=== PATIENT | female | born 1960 | race Caucasian/White ===

== ENCOUNTER 2022-11-17 06:14 | Day surgery (SDC) | payer MEDICARE, OTHER ==
[~2022-11-17 06:14] MED LIST: Dextrose 5%-0.45% NaCl 1,000 ML IV SCH
[2022-11-17] MEDS ORDERED: Midazolam 1 MG/ML 2 ML SDV IV ONE ×7 (06:15→07:55)
[2022-11-17] MEDS ORDERED: fentaNYL 100 MCG/2 ML SDV IV ONE ×4 (06:15→07:56)
[2022-11-17] MEDS ORDERED: fentaNYL 100 MCG/2 ML SDV ONE (07:40)
[2022-11-17] MEDS ORDERED: Midazolam 1 MG/ML 2 ML SDV ONE (07:40)
== END 2022-11-17 09:18 | disposition home or self-care (01) ==
LOC: DL.ENDO 06:14
PROVIDERS: ATTEND Internal Medicine Gastroenterology
DX: Z12.11 Encounter for screening for malignant neoplasm of colon (principal); K64.4 Residual hemorrhoidal skin tags; K64.8 Other hemorrhoids; M54.50 Low back pain, unspecified; E66.09 Other obesity due to excess calories; Z90.710 Acquired absence of both cervix and uterus; Z88.1 Allergy status to other antibiotic agents; Z88.5 Allergy status to narcotic agent; Z88.8 Allergy status to other drugs, medicaments and biological substances; Z90.13 Acquired absence of bilateral breasts and nipples; Z90.89 Acquired absence of other organs; Z68.32 Body mass index [BMI] 32.0-32.9, adult; Z79.899 Other long term (current) drug therapy
CPT/HCPCS: G0121; J2250; J3010; J7042